=== PATIENT | male | born 1980 | race African-American/Black ===

== ENCOUNTER 2018-08-18 08:40 | Emergency (ER) | payer OTHER ==
[~2018-08-18] VITALS: Ht 172.7 cm; Wt 82.1 kg
--- NOTE | 2018-08-18 08:45 | NUR ---
SUN Brown From [facility] "[employer] [facility] [employer]" , AWAKE. TO ER BED 9, VSS, KEPT SAFE AND COMFORTABLE. AWAITING MD SALCEDO
--- NOTE | 2018-08-18 09:05 | NUR ---
PT REFUSED EKG
--- NOTE | 2018-08-18 09:10 | NUR ---
PT REFUSED TO PROVIDE URINE SAMPLE. MADE AWARE.
--- NOTE | 2018-08-18 09:22 | NUR ---
DR MIRANDA MADE AWARE OF PT REFUSING BLOOD DRAW.
[2018-08-18 09:30] LABS: CALCIUM, SERUM 8.6 mg/dL (8.5-10.1); CARBON DIOXIDE 28 mmol/L (21-32); CHLORIDE 104 mmol/L (98-107); CREATININE 1.1 mg/dL (0.6-1.3); GLUCOSE 100 mg/dL (74-106); POTASSIUM 3.9 mmol/L (3.5-5.1); SODIUM SERUM 141 mmol/L (136-145); UREA NITROGEN, BLOOD 12 mg/dL (7-18)
[2018-08-18 09:45] LABS: ALANINE AMINOTRANSFERASE 50 U/L (12-78); ALBUMIN 3.5 g/dL (3.4-5.0); ALCOHOL, BLOOD < 3 mg/dL (0-0); ALKALINE PHOSPHATASE 134 U/L (46-116); ASPARTATE AMINOTRANSFERASE 32 U/L (15-37); BILIRUBIN,DIRECT 0.1 mg/dL (0.0-0.2); BILIRUBIN,TOTAL 0.3 mg/dL (0.2-1.0); SALICYLATE 4.4 mg/dL (2.8-20.0); TOTAL PROTEIN, SERUM 7.1 g/dL (6.4-8.2)
[2018-08-18 09:46] LABS: ACETAMINOPHEN < 2 ug/ml (10-30)
[2018-08-18 10:05] LABS: APPEARANCE,URINE Clear (CLEAR); BILIRUBIN,URINE Negative (NEGATIVE); BLOOD, URINE Negative Ery/uL (NEGATIVE); COLOR,URINE Yellow (YELLOW); KETONES,URINE Negative (NEGATIVE); LEUKOCYTE ESTERASE ,URINE Negative (NEGATIVE); NITRITE, URINE Negative (NEGATIVE); PH,URINE 7.5 (5.0-8.0); PROTEIN,URINE Negative (NEGATIVE); UGLUCOSE Negative (NEGATIVE); UROBILINOGEN,URINE 0.2 EU/dL (0.2)
--- NOTE | 2018-08-18 11:00 | NUR ---
[facility] CALLED. ETA [id number], TRIP # [id number]
--- NOTE | 2018-08-18 11:52 | NUR ---
PT TRANSFERED BACK TO [facility] VN. STABLE FOR TRANSFER.
[2018-08-18 11:56] VITALS: BP 135/84
== END 2018-08-18 11:56 ==
LOC: ER 08:44
DX: G40.909 Epilepsy, unspecified, not intractable, without status epilepticus (principal); F20.0 Paranoid schizophrenia; F19.10 Other psychoactive substance abuse, uncomplicated; I10 Essential (primary) hypertension; F32.9 Major depressive disorder, single episode, unspecified; M54.9 Dorsalgia, unspecified; Z98.890 Other specified postprocedural states
CPT/HCPCS: 36415; 70450-TC; 80048-TC; 80076-TC; 80305; 81000-TC; 84484-TC; A4606; G0480; Z7610